=== PATIENT | male | born 2000 | race Caucasian/White ===

== ENCOUNTER 2021-12-02 00:50 | Emergency (ER) | payer BC ==
[~2021-12-02 00:50] MED LIST: CORTISPORIN SUS10 ML OT
[2021-12-02] MEDS ORDERED: ZOFRAN4 MG PO (02:38)
== END 2021-12-02 02:41 | disposition home or self-care (01) ==
LOC: ED 00:50
DX: K22.2 Esophageal obstruction (principal); Z88.1 Allergy status to other antibiotic agents; Z88.0 Allergy status to penicillin; Z91.040 Latex allergy status

== ENCOUNTER 2023-06-18 02:39 | Emergency (ER) | payer SELFPAY ==
[~2023-06-18] VITALS: Wt 149.7 kg
[~2023-06-18 02:39] MED LIST changes: +ZOFRAN4 MG PO
[2023-06-18] MEDS ORDERED: ONDANSETRON ODT8 MG PO (04:10)
[2023-06-18] MEDS ORDERED: OMEPRAZOLE10 MG PO (04:10)
== END 2023-06-18 04:12 | disposition home or self-care (01) ==
LOC: ED 02:39
DX: K21.9 Gastro-esophageal reflux disease without esophagitis (principal); J45.909 Unspecified asthma, uncomplicated; I10 Essential (primary) hypertension; Z88.5 Allergy status to narcotic agent; Z91.040 Latex allergy status; Z88.8 Allergy status to other drugs, medicaments and biological substances; Z98.890 Other specified postprocedural states